=== PATIENT | female | born 1980 | race Caucasian/White ===

== ENCOUNTER → 2016-11-23 | Outpatient (CLI) | payer OTHER ==
--- NOTE | 2016-11-23 10:34 | REP ---
MAXILLOFACIAL CT WITHOUT CONTRAST: HISTORY: Chronic sinusitis. The sinuses are clear. The osteomeatal units are patent. The middle and inferior nasal turbinates are partially paradoxical. There is very minimal deviation of the nasal septum to the left anteriorly and to the right posteriorly. The cribriform plate, medial mcguire of the orbits, and optic canals are intact. The carotid canals form a segment of the posterolateral mcguire of the sphenoid sinus. The sphenoid sinus septum inserts into the left internal carotid canal wall. IMPRESSION: There is no acute or chronic sinusitis. Signed by Cristi Patel MD 11/23/2016 10:39 A
== END ==
LOC: M RAD 09:54
PROVIDERS: ATTEND Specialist
DX: J32.4 Chronic pansinusitis (principal); R51 Headache

== ENCOUNTER → 2021-02-16 | Outpatient (CLI) | payer OTHER ==
[2021-02-16 14:32] LABS: MAGNESIUM LEVEL 2.1 MG/DL (1.8-2.4); PHOSPHORUS LEVEL 3.2 MG/DL (2.5-4.9)
[2021-02-16 14:40] LABS: TOTAL 25(OH) VITAMIN D 50.1 NG/ML (30.0-100.0)
--- NOTE | 2021-02-17 03:53 | REP ---
INDICATION: MYALGIA, UNSPECIFIED SITE COMPARISON: None. TECHNIQUE: AP, lateral, bilateral oblique views left and right foot. FINDINGS: The bilateral osseous structures and joint spaces are intact, symmetric and normal. There is no evidence for acute fracture or dislocation. Surrounding soft tissues are unremarkable. No subcutaneous emphysema or radiodense foreign body. IMPRESSION: Normal symmetric age-appropriate bilateral foot radiograph series. <Electronically signed by Nicho Brice > 02/17/21 [id number]
--- NOTE | 2021-02-17 03:54 | REP ---
INDICATION: MYALGIA, UNSPECIFIED SITE. COMPARISON: None. TECHNIQUE: AP view of the pelvis with AP and frog-lateral views of the right and left hip. FINDINGS: Pelvis and bilateral hips are symmetric, age-appropriate, and relatively normal. No overt arthritic degenerative changes are appreciated. No periarticular calcifications or loose bodies. No rows of changes. IMPRESSION: Essentially age-appropriate bilateral hip radiograph series. <Electronically signed by Nicho Brice > 02/17/21 [id number]
--- NOTE | 2021-02-17 03:56 | REP ---
INDICATION: MYALGIA, UNSPECIFIED SITE COMPARISON: None. TECHNIQUE: AP, lateral, bilateral oblique views right and left hand. FINDINGS: The bilateral osseous structures and joint spaces are symmetric, intact and normal/age-appropriate. No significant arthritic or inflammatory changes are appreciated. There is no evidence for acute fracture or dislocation. Surrounding soft tissues are unremarkable. No subcutaneous emphysema or radiodense foreign body. IMPRESSION: Normal, age-appropriate symmetric bilateral hand radiograph series. <Electronically signed by Nicho Brice > 02/17/21 [id number]
== END ==
LOC: M LAB 12:57
PROVIDERS: ATTEND Internal Medicine
DX: M79.10 Myalgia, unspecified site (principal); M25.50 Pain in unspecified joint; M70.60 Trochanteric bursitis, unspecified hip

== ENCOUNTER → 2021-02-16 | Outpatient (REF) | payer OTHER | LOC: M SFHCRHEU 10:26 | PROVIDERS: ATTEND Internal Medicine | DX: M79.10 Myalgia, unspecified site (principal) ==

== ENCOUNTER → 2021-03-19 | Outpatient (CLI) | payer OTHER ==
--- NOTE | 2021-03-23 15:40 | SLEEPHOME ---
DATE: 03/19/2021 ORDERED BY: Nicolle Chacon MD Diagnostic home sleep testing was performed due to concern for the obstructive sleep apnea syndrome in this patient with a history of fatigue. For testing, a nocturnal T3 respiratory monitoring device was used. Continuous record was made of pulse, oxygen saturation, air flow, chest and abdominal strain, and body position. Eleven hours and 59 minutes of data were reviewed. There were 8 hours and 36 minutes marked as time in bed. During the interval marked time in bed, there were only 13 respiratory events identified of 10 seconds in duration or greater. The events were seen in the supine posture. Baseline pulse rate was 57. Pulse rate ranged 43 to 87. Baseline saturation was 94%. Saturations briefly dipped to 89% on one occasion. Testing was performed in both the supine and nonsupine positions. IMPRESSION: Normal diagnostic home sleep testing with respiratory patterning in the supine position. RECOMMENDATION: Sleep position retraining for avoidance of the supine posture should be helpful.
== END ==
LOC: M SLEEP HO 09:37
PROVIDERS: ATTEND Internal Medicine
DX: R53.82 Chronic fatigue, unspecified (principal)

== ENCOUNTER → 2022-03-03 | Outpatient (CLI) | payer OTHER ==
[~2022-03-03] MED LIST: AIMO70IN IM; CITA10TA7 PO; CITA20TA7 PO; LAMO100T3 PO; LEVE500T5; LIDOCAINE 1% MDV 20ML VIAL As Ordered ONE; MULTCHW12 PO; PREG25CA2 PO; TOPI100T9 PO
[2022-03-03 13:06] LABS: BASO # 0.1 10^3/uL (0.0-0.2); BASO % 0.6 % (0.0-1.0); EOS # 0.3 10^3/uL (0.0-0.5); EOS % 2.4 % (0.0-3.0); HEMATOCRIT 44.5 % (36.0-47.0); HEMOGLOBIN 14.4 g/dl (12.0-15.5); LYMPH # 1.8 10^3/uL (1.5-5.0); LYMPH % 14.4 % (24.0-44.0); MEAN CORPUSCULAR HEMOGLOBIN 30.8 pg (27.0-33.0); MEAN CORPUSCULAR HGB CONC 32.4 g/dl (32.0-36.5); MEAN CORPUSCULAR VOLUME 95.3 fl (80.0-96.0); MONO # 0.9 10^3/uL (0.0-0.8); MONO % 7.3 % (2.0-8.0); NEUTROPHILS # 9.3 10^3/uL (1.5-8.5); NEUTROPHILS % 74.7 % (36.0-66.0); PLATELET COUNT, AUTOMATED 365 10^3/uL (150-450); RED BLOOD COUNT 4.67 10^6/uL (4.00-5.40); WHITE BLOOD COUNT 12.4 10^3/uL (4.0-10.0)
[2022-03-03 13:30] VITALS: BP 133/74
== END ==
LOC: M IRPRO 11:09
PROVIDERS: ATTEND Specialist
DX: D64.9 Anemia, unspecified (principal)

== ENCOUNTER → 2022-08-05 | Outpatient (CLI) | payer OTHER ==
[~2022-08-05] MED LIST changes: +CITA20TA6 PO; -LEVE500T5; +LEVE500T5 PO; -LIDOCAINE 1% MDV 20ML VIAL As Ordered ONE
== END ==
LOC: M LABSMTC 11:12
PROVIDERS: ATTEND Anesthesiology
DX: Z01.812 Encounter for preprocedural laboratory examination (principal); Z20.822 Contact with and (suspected) exposure to COVID-19

== ENCOUNTER 2022-08-10 07:47 | Day surgery (SDC) | payer OTHER ==
[~2022-08-10] VITALS: Ht 170.2 cm; Wt 89.4 kg
[~2022-08-10 07:47] MED LIST changes: +NS 1,000 ML IV ONE
[2022-08-10] MEDS ORDERED: LIDOCAINE 2% 100MG/5ML SDV (FOR ANES.) As Ordered ONE (09:13)
[2022-08-10] MEDS ORDERED: propofoL 200 MG/20 ML VIAL As Ordered ONE (09:13)
[2022-08-10 09:45] VITALS: BP 133/83
== END 2022-08-10 10:00 | disposition home or self-care (01) ==
LOC: M OPP 07:47
PROVIDERS: ATTEND Internal Medicine Gastroenterology
DX: K51.90 Ulcerative colitis, unspecified, without complications (principal); K52.9 Noninfective gastroenteritis and colitis, unspecified; K64.8 Other hemorrhoids; Z79.899 Other long term (current) drug therapy; Z88.0 Allergy status to penicillin; Z88.2 Allergy status to sulfonamides; Z80.3 Family history of malignant neoplasm of breast; Z84.0 Family history of diseases of the skin and subcutaneous tissue; Z80.8 Family history of malignant neoplasm of other organs or systems

== ENCOUNTER → 2022-09-07 | Outpatient (REF) ==
[~2022-09-07] MED LIST changes: -NS 1,000 ML IV ONE
== END ==
LOC: M PLAIMG 12:59
PROVIDERS: ATTEND Internal Medicine
DX: M54.50 Low back pain, unspecified (principal); M54.2 Cervicalgia